=== PATIENT | female | born 1950 | race Two or more races ===

== ENCOUNTER 2017-01-12 16:33 | Inpatient (IN) | payer OTHER, MEDICAID ==
[~2017-01-12] VITALS: Ht 152.4 cm; Wt 58.5 kg
--- NOTE | 2017-01-12 16:56 | Emergency Room Report ---
History of Present Illness General Chief Complaint: Fever Source: Medical Record, EMS Present Illness HPI Patient presents to the ER with persistent fever Patient has a history of epilepsy Is on tracheostomy Patient appears to have been recently transferred from [facility] after persistent seizures Where the patient underwent multiple testing including lumbar puncture Patient appears to be on Keppra Patient herself is nonverbal does not provide any further input This does limit the history of present illness significantly Reports of vomiting or diarrhea patient appears to have been on Zosyn and vancomycin recently Allergies: Coded Allergies: No Known Allergies (Unverified , 01/12/17) Patient History Limited by: medical condition Past Medical History: see triage record Past Surgical History: unable to obtain Pertinent Family History: unable to obtain Now: No Reviewed Nursing Documentation: PMH: Agreed, PSxH: Agreed Nursing Documentation-PMH Past Medical History: No History, Except For Hx Hypertension: Yes Hx Diabetes: Yes Hx Seizures: Yes Review of Systems All Other Systems: negative except mentioned in HPI Physical Exam Vital Signs Date Time Temp Pulse Resp B/P Pulse Ox O2 Delivery O2 Flow Rate FiO2 01/12/17 16:27 102.6 109 16 6/ 91 Trach Collar Sp02 EP Interpretation: reviewed, normal General Appearance: mild distress Head: normocephalic, atraumatic Eyes: bilateral eye EOMI, bilateral eye PERRL ENT: hearing grossly normal, TMs + canals normal, uvula midline, other - Tracheostomy in place no crepitus Neck: supple, no meningismus, no bony tend Respiratory: no rhonchi, no respiratory distress, no retraction, no accessory muscle use, crackles - diffusely Cardiovascular #1: normal peripheral pulses, regular rate, rhythm, no edema, no gallop, no JVD, no murmur Gastrointestinal: non tender, soft, non-distended, no guarding, no hernia, no pulsatile mass, no rebound, other - Feeding tube in place Genitourinary: no CVA tenderness Musculoskeletal: other - Patient is chronicly debilitated, has lower leg ulcers patient's left upper arm appears to be significantly swollen compared to the right side Neurologic: responsive - Minimally to physical stimuli, sensory intact Psychiatric: mood/affect normal Skin: other - As above with skin ulcers on the left upper arm swelling Lymphatic: no adenopathy Medical Decision Making Diagnostic Impression: Primary Impression: Fever Additional Impressions: Sepsis Arm swelling UTI (urinary tract infection) ER Course Patient's complex requiring blood work and imaging study Patient has had long-standing fever With IV antibiotics Patient's urine sample does show bacteria and white blood cells Patient will have further broad-spectrum culturing IV fluids have been given Patient has cardiomegaly with mild congestion, a full a 30 mL per kilo fluid bolus is being held In order not to overwhelm the patient with fluid And patient up for further inpatient care Labs Test 01/12/17 16:50 01/12/17 17:00 01/12/17 18:00 White Blood Count 7.9 K/UL (4.8-10.8) Red Blood Count 3.45 M/UL (4.20-5.40) Hemoglobin 10.2 G/DL (12.0-16.0) Hematocrit 32.5 % (37.0-47.0) Mean Corpuscular Volume 94 FL (80-99) Mean Corpuscular Hemoglobin 29.7 PG (27.0-31.0) Mean Corpuscular Hemoglobin Concent 31.6 G/DL (32.0-36.0) Red Cell Distribution Width 20.6 % (11.6-14.8) Platelet Count 107 K/UL (150-450) Mean Platelet Volume 8.1 FL (6.5-10.1) Neutrophils (%) (Auto) 76.7 % (45.0-75.0) Lymphocytes (%) (Auto) 13.8 % (20.0-45.0) Monocytes (%) (Auto) 8.3 % (1.0-10.0) Eosinophils (%) (Auto) 0.1 % (0.0-3.0) Basophils (%) (Auto) 1.1 % (0.0-2.0) Prothrombin Time 13.4 SEC (9.30-11.50) Prothromb Time International Ratio 1.3 (0.9-1.1) Activated Partial Thromboplast Time 30 SEC (23-33) Sodium Level 146 mEQ/L (135-145) Potassium Level 3.4 mEQ/L (3.4-4.9) Chloride Level 108 mEQ/L (98-107) Carbon Dioxide Level 20 mEQ/L (20-30) Anion Gap 18 (5-15) Blood Urea Nitrogen 22 mg/dL (7-23) Creatinine 0.7 mg/dL (0.5-0.9) Estimat Glomerular Filtration Rate > 60 mL/min (>60) Glucose Level 436 mg/dL (74-106) Lactic Acid Level 2.30 mmol/L (0.66-2.22) 2.20 mmol/L (0.66-2.22) Calcium Level 9.0 mg/dL (8.6-10.2) Phosphorus Level 2.5 mg/dL (2.5-4.8) Magnesium Level 1.8 mg/dL (1.7-2.5) Total Bilirubin 2.1 mg/dL (0.0-1.2) Direct Bilirubin 0.9 mg/dL (0.1-0.3) Aspartate Amino Transf (AST/SGOT) 46 U/L (5-40) Alanine Aminotransferase (ALT/SGPT) 38 U/L (3-33) Alkaline Phosphatase 277 U/L (35-104) Ammonia 51 umol/L (11-51) Total Creatine Kinase 72 U/L (26-140) Creatine Kinase MB 2.1 ng/mL (< 3.8) Creatine Kinase MB Relative Index 2.9 Troponin I < 0.30 ng/mL (<=0.30) Pro-B-Type Natriuretic Peptide 3643 pg/mL (0-125) Total Protein 6.4 g/dL (6.6-8.7) Albumin 2.8 g/dL (3.5-5.2) Globulin 3.6 g/dL Albumin/Globulin Ratio 0.7 (1.0-2.7) Lipase 66 U/L (< 60) Urine Color Yellow Urine Appearance Slightly cloudy Urine pH 5 (4.5-8.0) Urine Specific [place] 1.015 (1.005-1.035) Urine Protein Negative (NEGATIVE) Urine Glucose (UA) 3+ (NEGATIVE) Urine Ketones Negative (NEGATIVE) Urine Occult Blood 1+ (NEGATIVE) Urine Nitrite Negative (NEGATIVE) Urine Bilirubin Negative (NEGATIVE) Urine Urobilinogen Normal MG/DL (0.0-1.0) Urine Leukocyte Esterase 2+ (NEGATIVE) Urine RBC 5-10 /HPF (0 - 2) Urine WBC 10-15 /HPF (0 - 2) Urine Squamous Epithelial Cells Few /LPF (NONE/OCC) Urine Amorphous Sediment Few /LPF (NONE) Urine Bacteria Moderate /HPF (NONE) Urine Yeast Moderate /HPF (NONE) EKG Diagnostic Results Rate: tachycardiac Rhythm: NSR ST Segments: other - Nonspecific ST and T-wave changes Rhythm Strip Diag. Results EP Interpretation: yes Rate: 96 Rhythm: NSR, no PVC's, no ectopy Chest X-Ray Diagnostic Results EP Interpretation: Yes Findings: no consolidation, no effusion, no pneumothorax, other - Cardiomegaly , mild congestion Number of Views: 1 Other X-Ray Diagnostic Results Other X-Ray Diagnostic Results : EP Interpretation: Yes Findings: no fractures, no dislocation, no soft tissue swelling Number of Views: 2 - left upper arm CT/MRI/US Diagnostic Results CT/MRI/US Diagnostic Results : Impression CT abdomen pelvis: Bilateral pleural effusions, cirrhosis with ascites , TIPS in place Last Vital Signs Date Time Temp Pulse Resp B/P Pulse Ox O2 Delivery O2 Flow Rate FiO2 01/12/17 16:27 102.6 109 16 6/ 91 Trach Collar Status: improved Disposition: ADMITTED INPATIENT Condition: Serious JENNY ALEXIS D.O. Jan 12, 2017 16:56
[2017-01-12 17:10] VITALS: BP 151/51
[2017-01-12] MEDS ORDERED: Acetaminophen 650 MG SUPP RECTAL ONE ×2 (17:15→17:30)
[2017-01-12 17:37] LABS: INR 1.3 (0.9-1.1); PROTHROMBIN TIME 13.4 SEC (9.30-11.50)
[2017-01-12 17:44] LABS: TROPONIN I < 0.30 ng/mL (<=0.30)
[2017-01-12 17:46] LABS: BASOPHILS % (AUTO) 1.1 % (0.0-2.0); EOSINOPHILS % (AUTO) 0.1 % (0.0-3.0); LYMPHOCYTES % (AUTO) 13.8 % (20.0-45.0); MEAN CORPUSCULAR HEMOGLOBIN 29.7 PG (27.0-31.0); MEAN CORPUSCULAR HGB CONC 31.6 G/DL (32.0-36.0); MEAN CORPUSCULAR VOLUME 94 FL (80-99); MEAN PLATELET VOLUME 8.1 FL (6.5-10.1); MONOCYTES % (AUTO) 8.3 % (1.0-10.0); NEUTROPHILS % (AUTO) 76.7 % (45.0-75.0); PLATELET COUNT 107 K/UL (150-450); RED BLOOD COUNT 3.45 M/UL (4.20-5.40); RED CELL DISTRIBUTION WIDTH 20.6 % (11.6-14.8); WHITE BLOOD COUNT 7.9 K/UL (4.8-10.8)
[2017-01-12 17:48] LABS: ALANINE AMINOTRANSFERASE 38 U/L (3-33); ALBUMIN/GLOBULIN RATIO 0.7 (1.0-2.7); ANION GAP 18 (5-15); ASPARTATE AMINO TRANSFERASE 46 U/L (5-40); CARBON DIOXIDE 20 mEQ/L (20-30); CHLORIDE 108 mEQ/L (98-107); CREATININE 0.7 mg/dL (0.5-0.9); GLOMERULAR FILTRATION RATE > 60 mL/min (>60); HEMOLYSIS 3; LIPASE 66 U/L (< 60); MAGNESIUM 1.8 mg/dL (1.7-2.5); PHOSPHORUS 2.5 mg/dL (2.5-4.8); POTASSIUM 3.4 mEQ/L (3.4-4.9); SODIUM 146 mEQ/L (135-145); TOTAL PROTEIN 6.4 g/dL (6.6-8.7)
[2017-01-12 17:50] LABS: REFLEX LACTIC ACID YES OR NO YES
[2017-01-12 17:59] LABS: CKMB 2.1 ng/mL (< 3.8)
[2017-01-12 18:04] LABS: APPEARANCE,URINE SLIGHTLY CLOUDY
[2017-01-12 18:05] LABS: KETONES,URINE NEGATIVE (NEGATIVE); NITRITE,URINE NEGATIVE (NEGATIVE); PH,URINE 5 (4.5-8.0); PROTEIN,URINE NEGATIVE (NEGATIVE)
[2017-01-12 18:06] LABS: LEUKOCYTE ESTERASE ,URINE 2+ (NEGATIVE); UROBILINOGEN,URINE NORMAL MG/DL (0.0-1.0)
[2017-01-12 18:07] LABS: AMORPHOUS SEDIMENT,UR FEW /LPF; BACTERIA,URINE MODERATE /HPF; SQUAMOUS EPITHELIAL CELL,UR FEW /LPF (NONE/OCC); YEAST,URINE MODERATE /HPF
[2017-01-12 18:09] LABS: BILIRUBIN,DIRECT 0.9 mg/dL (0.1-0.3)
[2017-01-12 18:47] VITALS: BP 123/42
[2017-01-12] MEDS ORDERED: KEPPRA1000 MG GT (19:28)
[2017-01-12] MEDS ORDERED: DIPHENOXYLATE-A60 ML GT (19:28)
[2017-01-12] MEDS ORDERED: JANUVIA100 MG GT (19:28)
[2017-01-12] MEDS ORDERED: CALCIUM POLYCA625 MG GT (19:28)
[2017-01-12] MEDS ORDERED: LANTUS SOL100 UNIT/1 SUBQ (19:28)
[2017-01-12] MEDS ORDERED: MULTI-DELYN237 ML GT (19:28)
[2017-01-12] MEDS ORDERED: TYLENOL650 MG/20. GT (19:28)
[2017-01-12] MEDS ORDERED: ARGINAID POWDE1 EACH GT (19:28)
[2017-01-12] MEDS ORDERED: NEXIUM40 MG ORAL (19:28)
[2017-01-12] MEDS ORDERED: VIMPAT200 MG GT (19:28)
[2017-01-12] MEDS ORDERED: HUMALOG100 UNIT/1 SUBQ (19:28)
[2017-01-12 20:29] VITALS: BP 123/42
[2017-01-12 21:27] VITALS: BP 158/72
[2017-01-12] MEDS ORDERED: Acetaminophen 650mg/20.3ml GT PRN (22:30)
[2017-01-12] MEDS: DuoNeb 0.5-3(2.5)mg/3ml neb HHN SCH (23:00)
[2017-01-13] VITALS (7 sets, daily range): BP systolic 117–145; BP diastolic 43–74
[2017-01-13] MEDS ORDERED: Vancomycin 750mg Inj IVPB ONE (00:02)
[2017-01-13] MEDS ORDERED: Zosyn 3.375gm inj ONE (00:03)
[2017-01-13] MEDS: Levemir Flexpen SUBQ SCH ×2 (00:13→21:05)
[2017-01-13] MEDS: NovoLOG Insulin Flexpen SUBQ SCH ×4 (00:15→18:34)
[2017-01-13] MEDS: Vancomycin 750mg/D5W 275ml IVPB SCH ×4 (00:17→23:48)
[2017-01-13] MEDS: Piperacillin/Tazobactam 3.375 GM in D5W 110 ML IVPB SCH ×3 (01:30→17:01)
[2017-01-13] MEDS: DuoNeb 0.5-3(2.5)mg/3ml neb HHN SCH ×6 (03:12→23:25)
[2017-01-13] MEDS ORDERED: NovoLOG Insulin Flexpen SUBQ SCH (06:30)
[2017-01-13 07:31] LABS: MEAN CORPUSCULAR HEMOGLOBIN 30.2 PG (27.0-31.0); MEAN CORPUSCULAR HGB CONC 31.6 G/DL (32.0-36.0); MEAN CORPUSCULAR VOLUME 96 FL (80-99); MEAN PLATELET VOLUME 7.1 FL (6.5-10.1); PLATELET COUNT 96 K/UL (150-450); RED BLOOD COUNT 3.25 M/UL (4.20-5.40); RED CELL DISTRIBUTION WIDTH 21.1 % (11.6-14.8); WHITE BLOOD COUNT 7.4 K/UL (4.8-10.8)
[2017-01-13] MEDS ORDERED: Lomotil 2.5mg tab GT PRN (07:45)
[2017-01-13 07:46] LABS: ALANINE AMINOTRANSFERASE 35 U/L (3-33); ALBUMIN/GLOBULIN RATIO 0.8 (1.0-2.7); ANION GAP 17 (5-15); ASPARTATE AMINO TRANSFERASE 38 U/L (5-40); CALCIUM 8.9 mg/dL (8.6-10.2); CARBON DIOXIDE 21 mEQ/L (20-30); CHLORIDE 112 mEQ/L (98-107); CREATININE 0.7 mg/dL (0.5-0.9); GLOMERULAR FILTRATION RATE > 60 mL/min (>60); HEMOLYSIS 5; POTASSIUM 3.1 mEQ/L (3.4-4.9); SODIUM 150 mEQ/L (135-145); TOTAL PROTEIN 5.8 g/dL (6.6-8.7)
[2017-01-13 07:59] LABS: BILIRUBIN,DIRECT 0.8 mg/dL (0.1-0.3)
[2017-01-13] MEDS: Lacosamide 100 MG TABLET ORAL SCH ×2 (09:08→21:02)
[2017-01-13] MEDS: Multivitamin 5ml Liquid GT SCH (09:08)
[2017-01-13] MEDS: Pantoprazole 40mg pkt GT SCH (09:15)
--- NOTE | 2017-01-13 09:47 | Diagnostic Imaging Report ---
Indication: Abdominal pain Technique: Continuous helical transaxial imaging of the abdomen and pelvis was obtained from the lung bases to the pubic symphysis during intravenous contrast administration. Coronal 2-D reformats were also obtained. Study obtained in a Siemens sensation [address] Total Dose length Product (DLP): [address] Dose Index Volume (CTDIvol): 16 mGy Comparison: None Findings: There are small bilateral pleural effusions present. There is nodularity of the liver and splenomegaly consistent with cirrhosis and portal hypertension. There is a TIPS present which appears to be grossly patent. Gallstone is present. Gastrostomy noted. There is posterior basilar atelectasis and cardiomegaly present. Mildly distended loops of small bowel that are fluid-filled noted, nonspecific. Consider enteritis. Some fecal retention demonstrated within the colon and rectum. 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 Impression: Chronic liver disease and stigmata of portal hypertension including portosystemic varices, splenomegaly, ascites and a patent TIPS shunt. Gallstones Gastrostomy Status post hysterectomy Bilateral pleural effusions Dr. Linton has communicated the preliminary results to the Emergency Department. There are no significant discrepancies. The CT scanner at [facility] is accredited by the [employer] and the scans are performed using protocols designed to limit radiation exposure to as low as reasonably achievable to attain images of sufficient resolution adequate for diagnostic evaluation.
--- NOTE | 2017-01-13 10:25 | Diagnostic Imaging Report ---
Indication: Chest Pain Comparison: 01/12/17 A single view chest radiograph was obtained. Findings: Interstitial edema is suspected it appears unchanged from the prior day. Cardiomegaly is present. Small fusion on the left not excluded. Tracheostomy again noted. Impression: CHF
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
--- NOTE | 2017-01-13 11:04 | Infectious Diseases Prog Note ---
Assessment/Plan Assessment/Plan Full consult dictated: A) 1) sepsis, fevers, sirs, ? uti, ? pna, ? cholecystitis, elevated ap/tb, ? viral, influenza negative 2) trach, htn, dm, sz 3) wound care per protocol P) 1) zosyn, vancomycin 2) check sc, labs and f/u chest x-ray 3) thank you Subjective Allergies: Coded Allergies: No Known Allergies (Unverified , 01/12/17) Objective Vital Signs Last 24 Hour Vital Signs Date Time Temp Pulse Resp B/P Pulse Ox O2 Delivery O2 Flow Rate FiO2 01/13/17 08:32 93 18 100 T-piece 5.0 30 01/13/17 08:32 100 T-piece 5.0 30 01/13/17 08:32 T-piece 5.0 30 01/13/17 08:26 96 18 100 T-piece 5.0 30 01/13/17 08:26 30 01/13/17 08:00 98.2 96 17 135/62 100 T-piece 30 01/13/17 04:00 98.2 79 20 144/74 92 Trach Collar 01/13/17 04:00 106 01/13/17 03:26 72 18 100 T-piece 6.0 30 01/13/17 03:11 89 18 100 T-piece 6.0 30 01/13/17 01:13 T-piece 01/13/17 01:10 97 T-piece 6.0 30 01/13/17 00:00 98.3 96 24 143/68 100 Trach Collar 01/13/17 00:00 97 01/12/17 23:41 85 18 99 T-piece 6.0 30 01/12/17 23:40 81 01/12/17 23:30 82 18 97 T-piece 6.0 30 01/12/17 22:31 98 T-piece 6.0 30 01/12/17 22:30 T-piece 6.0 30 01/12/17 21:27 97.7 90 19 158/72 100 Room Air 01/12/17 21:00 99.2 80 20 123/42 100 Endotracheal Tube 5.0 01/12/17 20:29 99.2 80 20 123/42 100 Endotracheal Tube 5.0 01/12/17 18:47 86 16 123/42 100 T-piece 5.0 01/12/17 18:32 99.2 01/12/17 18:29 99.2 01/12/17 17:10 103.6 100 16 151/51 100 T-piece 5.0 01/12/17 16:27 102.6 109 16 6/ 91 Trach Collar Height (Feet): 5 Weight (Pounds): 129 Microbiology Date/Time Source Procedure Growth Status 01/12/17 16:50 Nasal Nares Influenza Types A,B Antigen (KENYATTA) - Final Complete 01/12/17 17:00 Urine,Clean Catch Urine Culture - Preliminary NO GROWTH Resulted Laboratory Tests Test 01/12/17 16:50 01/12/17 17:00 01/12/17 18:00 01/13/17 06:40 White Blood Count 7.9 K/UL (4.8-10.8) 7.4 K/UL (4.8-10.8) Red Blood Count 3.45 M/UL (4.20-5.40) L 3.25 M/UL (4.20-5.40) L Hemoglobin 10.2 G/DL (12.0-16.0) L 9.8 G/DL (12.0-16.0) L Hematocrit 32.5 % (37.0-47.0) L 31.1 % (37.0-47.0) L Mean Corpuscular Volume 94 FL (80-99) 96 FL (80-99) Mean Corpuscular Hemoglobin 29.7 PG (27.0-31.0) 30.2 PG (27.0-31.0) Mean Corpuscular Hemoglobin Concent 31.6 G/DL (32.0-36.0) L 31.6 G/DL (32.0-36.0) L Red Cell Distribution Width 20.6 % (11.6-14.8) H 21.1 % (11.6-14.8) H Platelet Count 107 K/UL (150-450) L 96 K/UL (150-450) L Mean Platelet Volume 8.1 FL (6.5-10.1) 7.1 FL (6.5-10.1) Neutrophils (%) (Auto) 76.7 % (45.0-75.0) H % (45.0-75.0) Lymphocytes (%) (Auto) 13.8 % (20.0-45.0) L % (20.0-45.0) Monocytes (%) (Auto) 8.3 % (1.0-10.0) % (1.0-10.0) Eosinophils (%) (Auto) 0.1 % (0.0-3.0) % (0.0-3.0) Basophils (%) (Auto) 1.1 % (0.0-2.0) % (0.0-2.0) Prothrombin Time 13.4 SEC (9.30-11.50) H Prothromb Time International Ratio 1.3 (0.9-1.1) H Activated Partial Thromboplast Time 30 SEC (23-33) Sodium Level 146 mEQ/L (135-145) H 150 mEQ/L (135-145) H Potassium Level 3.4 mEQ/L (3.4-4.9) 3.1 mEQ/L (3.4-4.9) L Chloride Level 108 mEQ/L (98-107) H 112 mEQ/L (98-107) H Carbon Dioxide Level 20 mEQ/L (20-30) 21 mEQ/L (20-30) Anion Gap 18 (5-15) H 17 (5-15) H Blood Urea Nitrogen 22 mg/dL (7-23) 24 mg/dL (7-23) H Creatinine 0.7 mg/dL (0.5-0.9) 0.7 mg/dL (0.5-0.9) Estimat Glomerular Filtration Rate > 60 mL/min (>60) > 60 mL/min (>60) Glucose Level 436 mg/dL (74-106) H 431 mg/dL (74-106) H Lactic Acid Level 2.30 mmol/L (0.66-2.22) H 2.20 mmol/L (0.66-2.22) Calcium Level 9.0 mg/dL (8.6-10.2) 8.9 mg/dL (8.6-10.2) Phosphorus Level 2.5 mg/dL (2.5-4.8) Magnesium Level 1.8 mg/dL (1.7-2.5) Total Bilirubin 2.1 mg/dL (0.0-1.2) H 1.7 mg/dL (0.0-1.2) H Direct Bilirubin 0.9 mg/dL (0.1-0.3) H 0.8 mg/dL (0.1-0.3) H Aspartate Amino Transf (AST/SGOT) 46 U/L (5-40) H 38 U/L (5-40) Alanine Aminotransferase (ALT/SGPT) 38 U/L (3-33) H 35 U/L (3-33) H Alkaline Phosphatase 277 U/L (35-104) H 223 U/L (35-104) H Ammonia 51 umol/L (11-51) Total Creatine Kinase 72 U/L (26-140) Creatine Kinase MB 2.1 ng/mL (< 3.8) Creatine Kinase MB Relative Index 2.9 Troponin I < 0.30 ng/mL (<=0.30) Pro-B-Type Natriuretic Peptide 3643 pg/mL (0-125) H Total Protein 6.4 g/dL (6.6-8.7) L 5.8 g/dL (6.6-8.7) L Albumin 2.8 g/dL (3.5-5.2) L 2.7 g/dL (3.5-5.2) L Globulin 3.6 g/dL 3.1 g/dL Albumin/Globulin Ratio 0.7 (1.0-2.7) L 0.8 (1.0-2.7) L Lipase 66 U/L (< 60) H Urine Color Yellow Urine Appearance Slightly cloudy Urine pH 5 (4.5-8.0) Urine Specific [place] 1.015 (1.005-1.035) Urine Protein Negative (NEGATIVE) Urine Glucose (UA) 3+ (NEGATIVE) H Urine Ketones Negative (NEGATIVE) Urine Occult Blood 1+ (NEGATIVE) H Urine Nitrite Negative (NEGATIVE) Urine Bilirubin Negative (NEGATIVE) Urine Urobilinogen Normal MG/DL (0.0-1.0) Urine Leukocyte Esterase 2+ (NEGATIVE) H Urine RBC 5-10 /HPF (0 - 2) H Urine WBC 10-15 /HPF (0 - 2) H Urine Squamous Epithelial Cells Few /LPF (NONE/OCC) Urine Amorphous Sediment Few /LPF (NONE) H Urine Bacteria Moderate /HPF (NONE) H Urine Yeast Moderate /HPF (NONE) H Neutrophils % (Manual) Pending Lymphocytes % (Manual) Pending Platelet Estimate Pending Platelet Morphology Pending Current Medications Medications (Trade) Dose Ordered Sig/Pete Route PRN Reason Start Time Stop Time Status Last Admin Dose Admin Acetaminophen (Tylenol) 650 mg Q4H PRN GT Prn Headache/Temp > 101 01/12/17 22:30 02/11/17 22:29 Albuterol/ Ipratropium (DuoNeb 0.5-3(2.5)mg/3ml) 3 ml Q4HRT HHN 01/12/17 23:00 01/17/17 22:59 01/13/17 08:26 Dextrose (Dextrose 50%) STAT PRN IV Hypoglycemia 01/12/17 22:45 02/11/17 22:44 Dextrose/ Electrolytes (D5W w/KCl 20mEq) 1,000 ml @ 100 mls/hr Q10H IV 01/13/17 11:00 02/12/17 10:59 Diphenoxylate HCl/ Atropine (Lomotil) 2.5 mg Q6H PRN GT Diarrhea 01/13/17 07:45 02/12/17 07:44 Insulin Aspart Protocol continued 380-42... Q6HR SUBQ 01/13/17 00:06 02/12/17 00:05 01/13/17 05:56 Insulin Detemir (Levemir) 40 units BEDTIME SUBQ 01/12/17 23:00 02/11/17 22:59 01/13/17 00:13 Lacosamide 200 mg 200 mg Q12HR ORAL 01/13/17 09:00 02/12/17 08:59 01/13/17 09:08 Levetiracetam (Keppra) 1,500 mg BID GT 01/13/17 09:00 02/12/17 08:59 01/13/17 09:08 Multivitamins (Multivitamin Hexavitamin) 5 ml DAILY GT 01/13/17 09:00 02/12/17 08:59 01/13/17 09:08 Non-Formulary Medication (Non-Formulary Med) 1 ea DAILY ORAL 01/13/17 09:00 02/12/17 08:59 UNV Non-Formulary Medication (Non-Formulary Med) 1 ea DAILY ORAL 01/13/17 09:00 02/12/17 08:59 UNV Pantoprazole (Protonix) 40 mg DAILY GT 01/13/17 09:00 02/12/17 08:59 01/13/17 09:15 Piperacillin Sod/ Tazobactam Sod/ Dextrose (Zosyn/D5W) 110 ml @ 27.5 mls/hr Q8H IVPB 01/13/17 00:00 01/20/17 00:00 01/13/17 09:08 Sitagliptin Phosphate (Januvia) 100 mg DAILY GT 01/13/17 09:00 02/12/17 08:59 01/13/17 09:08 Vancomycin HCl 1 ea 1 ea DAILY PRN MISC Per rx protocol 01/12/17 22:15 02/11/17 22:14 Vancomycin HCl/ Dextrose (Vancomycin/D5W) 275 ml @ 183.708 mls/hr Q24H IVPB 01/12/17 23:00 01/17/17 22:59 01/13/17 00:17 LATOSHA ARANDA Jan 13, 2017 11:04
--- NOTE | 2017-01-13 11:21 | Diagnostic Imaging Report ---
Indication: Pain Findings: 2 views of the left humerus were obtained. No acute fractures, malalignment, erosions or periostitis are identified. Bone mineralization is diffusely decreased. Soft tissues are unremarkable. Impression: Negative examination of the humerus
--- NOTE | 2017-01-13 11:21 | Diagnostic Imaging Report ---
Indication: Chest Pain Comparison: None A single view chest radiograph was obtained. Findings: Tracheostomy noted. Cardiomegaly, pulmonary vascular redistribution and mild interstitial edema are present. The bones are osteopenic. Impression: Mild CHF
[2017-01-13] MEDS: D5W w/KCl 20mEq 1,000 ML IV SCH ×2 (11:40→21:02)
[2017-01-13 11:52] LABS: BAND NEUTROPHILS % (MANUAL) 0 % (0-8); BASOPHILS % (MANUAL) 0 % (0-2); EOSINOPHILS % (MANUAL) 0 % (0-3); LYMPHOCYTES % (MANUAL) 16 % (20-45); NEUTROPHILS % (MANUAL) 76 % (45-75); PLATELET ESTIMATE DECREASED; PLATELET MORPHOLOGY NORMAL; TOTAL CELLS COUNTED 100
[2017-01-13 11:53] LABS: ANISOCYTOSIS 2+; HYPOCHROMASIA 1+
--- NOTE | 2017-01-13 12:54 | History & Physical ---
History and Physical History & Physicial dict sepsis resp failure cirrhosis, consider SBP r/o SBE encephalopathy DM UTI LUE edema dehydration, high Na, low K VIOLET BLOOD Jan 13, 2017 12:54
--- NOTE | 2017-01-13 20:18 | History and Physical Report ---
DATE OF ADMISSION: 01/12/2017 CHIEF COMPLAINT: Fever. HISTORY OF PRESENT ILLNESS: The patient is an unfortunate 66-year-old woman, who was sent to the emergency department yesterday by paramedics because of persistent fever. I saw her yesterday prior to admission at the nursing facility. She had been admitted several days earlier with respiratory failure and had fever. On arrival, she was cultured and placed on Zosyn and vancomycin. She did not respond and continued having fever and was transferred to the hospital. 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 PAST MEDICAL HISTORY: The patient was chronically ill with cirrhosis and diabetes and hepatic encephalopathy. She developed status epilepticus and was hospitalized initially at [facility] and then transferred to [facility]. She was treated with seizure medication and required placement of a tracheostomy. She is not ventilator-dependent. She has a gastric feeding tube. ALLERGIES: None. MEDICATIONS: Reviewed and reconciled. PHYSICAL EXAMINATION: VITAL SIGNS: Show temperature was 102.6 and pulse 109, on arrival. GENERAL: The patient is unresponsive, lying in bed. HEENT: The head is normocephalic. There is no signs of trauma. NECK: She has a tracheostomy on cool aerosol. CHEST: She has a few rhonchi. CARDIAC: Rhythm is regular. ABDOMEN: Soft. Gastric tube is in place. Liver and spleen not enlarged. There is no ascites evidence. EXTREMITIES: Have no clubbing or cyanosis. There is edema of the left arm. LABORATORY STUDIES: Show normal white count, hemoglobin is 9.8, and platelets are reduced to 96,000. Chemistry shows sodium is elevated at 150 and potassium 3.1. Renal function is normal. Blood sugar is 431. Lactic acid was elevated at 2.30 repeat was 2.20. Bilirubin was elevated at 1.7 and liver enzymes are elevated. Albumin is 2.7. Urinalysis shows 10 to 15 white cells. INR is 1.3. IMPRESSIONS: 1. Sepsis with fever and lactic acidosis, etiology unclear. 2. Respiratory failure on cool aerosol with tracheostomy. 3. Anoxic encephalopathy status post status epilepticus. 4. Seizure disorder. 5. Dysphagia with gastric tube. 6. Cirrhosis. 7. Diabetes. 8. Hypernatremia with dehydration. 9. Urinary tract infection, mild. PLAN: The patient will have an abdominal ultrasound if there is significant ascites and spontaneous peritonitis would be consideration and paracentesis would be indicated. Blood cultures and echocardiogram will be done to look for possible endocarditis. The patient was seen by Infectious Disease, who I have contacted this morning. She will be transferred to her contracted hospital if requested. Her prognosis is poor. Tripp Lopez M.D. DR: DIPIKA JOB#: [id number] CC: Tripp Lopez M.D.; Fax#: [phone] Lopez M.D. ; Fax#: [phone]
[2017-01-14 00:18] VITALS: BP 130/81
[2017-01-14] MEDS: Piperacillin/Tazobactam 3.375 GM in D5W 110 ML IVPB SCH ×3 (00:53→17:17)
[2017-01-14] MEDS: NovoLOG Insulin Flexpen SUBQ SCH ×4 (00:54→18:04)
[2017-01-14] MEDS: DuoNeb 0.5-3(2.5)mg/3ml neb HHN SCH ×6 (03:21→22:33)
[2017-01-14 04:00] VITALS: BP 96/40
--- NOTE | 2017-01-14 04:48 | Consultation ---
DATE OF CONSULTATION: 01/13/2017 CONSULTING PHYSICIAN: Emile Lopez M.D. ATTENDING PHYSICIAN: Tripp Lopez M.D. REASON FOR CONSULTATION: Sepsis and fevers, possible UTI, and possible pneumonia. CHIEF COMPLAINT: Coming into the hospital for sepsis. HISTORY OF PRESENT ILLNESS: This is a 66-year-old female, who has a history of tracheostomy. Currently, she is not on ventilator. She is poorly responsive. The patient presents to [facility] with fevers and sepsis. Infectious Disease consultation was requested for antibiotic management. Workup showed that she could have urinary tract infection. Chest x-ray showed CHF. She is a risk for pneumonia, aspiration and healthcare-acquired pneumonia. The patient was placed on Zosyn and vancomycin. Pending cultures. MAR was noted. Orders noted. Notes were reviewed. Case was discussed with the RN. PAST MEDICAL HISTORY: Obtained from the records. She has a past medical history as following. She has a history of cirrhosis, history of spontaneous bowel peritonitis, history of encephalopathy, history of diabetes, comes in with dehydration, anemia, history of respiratory failure on trach, history of encephalopathy, and history of seizures. She has a history of ventilator-dependent respiratory failure. She also has a history of hypertension in addition to the other medical problems. Please see past medical history in medical record. MEDICATIONS: Upon reviewing the MAR, the patient is on the following medications. She is on IV fluids, Keppra, multivitamins, Januvia, Vimpat, Protonix, Lomotil, NovoLog insulin, Zosyn, vancomycin per pharmacy dosing, Levemir, IV fluids, and acetaminophen. Please see medications in medical record. ALLERGIES: No known drug allergies. SOCIAL HISTORY: Negative for smoking, alcohol, or drug abuse. FAMILY HISTORY: Noncontributory. REVIEW OF SYSTEMS: Constitutional: She has generalized weakness, fatigue, and poorly responsive. She came in with fevers. She has a Sky. Head And Neck: She has a trach. Cardiac: No pressure. Gastrointestinal: No nausea, vomiting, or diarrhea. Genitourinary: She has a Sky. Pulmonary: She has congestion and shortness of breath. She had a trach. Skin: No rash. Wounds were noted. Neurologic: No seizures. PHYSICAL EXAMINATION: GENERAL: The patient is poorly responsive and lethargic. VITAL SIGNS: She came in with temperature of 103.6 degrees. Her pulse rate is 108, temperature now is 100.0 degrees, respiratory rate 20, blood pressure 132/43, and saturation 100%. She is on a TPs trach. Respiratory rate was high as 20. HEAD AND NECK: Normocephalic. No facial droop. Trach intact. CARDIAC: Regular. No gallop or murmur. ABDOMEN: Soft. Positive bowel sounds. Mild distention. LUNGS: Few bilateral rhonchi, rales, and crackles. SKIN: No rash or dermatitis. MUSCULOSKELETAL: No effusion or contractures. Legs are without cellulitis. PERIPHERAL VASCULAR: No cyanosis or gangrene. RECTAL: Deferred. PELVIC: Deferred. BREASTS: Deferred. LINES: Line sites are without phlebitis. NEUROLOGIC: Generalized weakness and poorly responsive. Wound was reviewed and to my exam and review they do not look acutely infected. LABORATORY AND DIAGNOSTIC DATA: UA has 2+ leukocyte esterase and 10 to 15 white blood cells. Creatinine is 0.7. White count is 7.4 and hemoglobin is 9.8. Urine culture is negative so far. Influenza screen is negative. Final urine culture is pending. Serum culture was ordered. Chest x-ray shows CHF versus infiltrate is noted. I reviewed CT scan of the abdomen and pelvis showed liver disease with portal hypertension, varices, and effusions. There is no mention of ascites at this time. Final cultures are pending. White count is 7.4, hemoglobin 9.8, and platelet count 96,000. Creatinine is 0.7. LFTs were noted. Ultrasound of the abdomen has been ordered and this has been done and results are pending. ASSESSMENT AND PLAN: 1. The patient has sepsis, fevers, SIRS criteria, questionable urinary tract infection, questionable pneumonia, questionable cholecystitis, questionable spontaneous bowel peritonitis, influenza is negative, and questionable viral syndrome. At this time, the patient is on Zosyn and vancomycin. Check ultrasound. Check followup labs. Check chest x-ray. Check sputum culture, urine culture and final. Continue Zosyn and vancomycin. Pending workup for patient with sepsis and fevers. 2. The patient has history of hypertension. 3. Diabetes. 4. Follow blood sugar and blood pressure control per primary. 5. Seizures. 6. Tracheostomy. 7. History of ventilator respiratory failure. 8. Cirrhosis. 9. History of encephalopathy. 10. Wound care protocol done, I do not think this is the source of sepsis. 11. Feeding tube dysphagia. 12. Anemia. 13. Hypernatremia. 14. Past medical history as noted. 15. No allergies. 16. Notes were reviewed. Thank you for this consultation. I will follow. Emile Lopez M.D. DR: SHREYA JOB#: [id number] CC:
--- NOTE | 2017-01-14 06:13 | Wound Nurse Progress Note ---
Wound RN Progress Note Wound Consult reassessed admitted wounds , no change noted at this time. wound care is effective. blister site remains intact. CORINNE NUNEZ Jan 14, 2017 06:13
[2017-01-14] MEDS: D5W w/KCl 20mEq 1,000 ML IV SCH ×2 (07:00→18:05)
[2017-01-14 07:49] LABS: ALANINE AMINOTRANSFERASE 44 U/L (3-33); ALBUMIN/GLOBULIN RATIO 0.7 (1.0-2.7); ANION GAP 17 (5-15); ASPARTATE AMINO TRANSFERASE 74 U/L (5-40); CALCIUM 8.9 mg/dL (8.6-10.2); CARBON DIOXIDE 21 mEQ/L (20-30); CHLORIDE 102 mEQ/L (98-107); CREATININE 0.7 mg/dL (0.5-0.9); GLOMERULAR FILTRATION RATE > 60 mL/min (>60); HEMOLYSIS 5; MEAN CORPUSCULAR HEMOGLOBIN 30.4 PG (27.0-31.0); MEAN CORPUSCULAR HGB CONC 30.8 G/DL (32.0-36.0); MEAN CORPUSCULAR VOLUME 98 FL (80-99); MEAN PLATELET VOLUME 7.7 FL (6.5-10.1); PLATELET COUNT 83 K/UL (150-450); POTASSIUM 3.6 mEQ/L (3.4-4.9); RED BLOOD COUNT 3.13 M/UL (4.20-5.40); RED CELL DISTRIBUTION WIDTH 20.6 % (11.6-14.8); SODIUM 140 mEQ/L (135-145); TOTAL PROTEIN 6.1 g/dL (6.6-8.7); WHITE BLOOD COUNT 5.7 K/UL (4.8-10.8)
[2017-01-14 08:00] VITALS: BP 135/48
[2017-01-14 08:08] LABS: BILIRUBIN,DIRECT 0.8 mg/dL (0.1-0.3)
[2017-01-14 08:30] LABS: ANISOCYTOSIS 3+; BAND NEUTROPHILS % (MANUAL) 0 % (0-8); BASOPHILS % (MANUAL) 0 % (0-2); EOSINOPHILS % (MANUAL) 5 % (0-3); HYPOCHROMASIA 2+; LYMPHOCYTES % (MANUAL) 18 % (20-45); NEUTROPHILS % (MANUAL) 74 % (45-75); PLATELET ESTIMATE DECREASED; PLATELET MORPHOLOGY NORMAL; TOTAL CELLS COUNTED 100
[2017-01-14] MEDS: Multivitamin 5ml Liquid GT SCH (08:51)
[2017-01-14] MEDS: Pantoprazole 40mg pkt GT SCH (08:51)
[2017-01-14] MEDS: Lacosamide 100 MG TABLET ORAL SCH ×2 (08:52→21:44)
--- NOTE | 2017-01-14 09:59 | Diagnostic Imaging Report ---
Indication: Abnormal liver function tests Technique: Melo-scale and duplex images of the upper abdomen were obtained Comparison: CT scan dated 01/12/2017 Findings: There is a small left pleural effusion. Gallbladder demonstrates gallstones. Gallbladder wall is mildly thickened, measuring 4 mm thick. . Common bile duct measures 6 mm in diameter. No intrahepatic biliary ductal dilatation. Liver demonstrates coarsened echogenicity, and surface micro-nodularity. There is a right portal vein to right hepatic vein TIPS. This is patent. Hepatic flow is demonstrated within the main portal vein. Is apparent velocity elevation within the TIPS, flow velocity measuring between 236 and 3 17 cm/s. The main portal vein flow velocity is approximately 50 cm/s. Trace ascites fluid visualized on CT scan is not evident sonographically. Pancreas is obscured by bowel gas. Spleen is mildly enlarged, measuring 13.5 cm long axis dimension. Some splenic hilar varices are demonstrated.. Left kidney measures 11.5 cm in length. Right kidney measures 12.6 cm length. Both kidneys demonstrate normal echogenicity. There is no hydronephrosis. No focal abnormality. . Non-aneurysmal abdominal aorta. Impression: Evidence of hepatic cirrhosis Right portal to right hepatic vein TIPS shunt. This is patent, but apparent flow velocity elevation raises possibility of shunt stenosis. Mild splenomegaly Splenic hilar varices. 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 Cholelithiasis. Mild gallbladder wall thickening is probably secondary to hepatocellular dysfunction, but acute cholecystitis cannot be ruled out. Consider comparison thyroid scan if there is high clinical suspicion Negative for dilated bile ducts Small left pleural effusion Note inability to visualize pancreas and portions of the abdominal aorta
[2017-01-14 12:00] VITALS: BP 110/83
--- NOTE | 2017-01-14 15:14 | Cardiology Report ---
APPROVED REPORT EKG Measurement Heart [id number] Normal sinus rhythm Nonspecific T wave abnormality Abnormal ECG
--- NOTE | 2017-01-14 15:32 | Cardiology Report ---
APPROVED REPORT EXAM: Two-dimensional and M-mode echocardiogram with Doppler and color Doppler. INDICATION Endocarditis M-Mode DIMENSIONS IVSd1.2 (0.7-1.1cm)Left Atrium (MM)3.8 (1.6-4.0cm) LVDd3.3 (3.5-5.6cm)Aortic Root2.8 (2.0-3.7cm) PWd1.0 (0.7-1.1cm)Aortic Cusp Exc.1.8 (1.5-2.0cm) LVDs2.1 (2.5-4.0cm) PWs1.4 cm Normal left ventricular chamber size, systolic function and wall motion. Left ventricular ejection fraction estimated to be 65 %. Mild left ventricular hypertrophy by 2-D. Anterior Echo-free space, may be due to pericardial fat or effusion. Mild left atrial enlargement. Right cardiac chamber sizes are within normal limits. Mild focal aortic valve sclerosis with adequate cusp excursion. Mildly thickened mitral valve leaflets with normal excursion. Mitral annulus and aortic root calcification. Normal pulmonic valve structure. Normal tricuspid valve structure. IVC at normal size with physiologic collapse. A color flow and spectral Doppler study was performed and revealed: No aortic regurgitation. No aortic stenosis. Moderate mitral regurgitation. No mitral stenosis. Mitral inflow indicates normal left ventricular diastolic function. Moderate tricuspid regurgitation. Tricuspid systolic velocities suggests peak right ventricular systolic pressure of 57 mmHg, consistent with moderate to severe pulmonary hypertension. Mild pulmonic regurgitation present.
[2017-01-14 16:00] VITALS: BP 131/55
--- NOTE | 2017-01-14 16:35 | Pulmonology Progress Note ---
Assessment/Plan Assessment/Plan 1. Sepsis with fever and lactic acidosis, etiology unclear. 2. Respiratory failure on cool aerosol with tracheostomy. 3. Anoxic encephalopathy status post status epilepticus. 4. Seizure disorder. 5. Dysphagia with gastric tube. 6. Cirrhosis. 7. Diabetes. 8. Hypernatremia with dehydration. 9. Urinary tract infection, mild. 10. Pulm HTN Na normal; decrease IVF temp down echo no vegetations abd US gallstones, doubt acute ramior cont rx disc w RN Subjective ROS Limited/Unobtainable: Yes Constitutional: Reports: fever - 100 max Allergies: Coded Allergies: No Known Allergies (Unverified , 01/12/17) Objective Last 24 Hour Vital Signs Date Time Temp Pulse Resp B/P Pulse Ox O2 Delivery O2 Flow Rate FiO2 01/14/17 14:47 98 20 100 T-piece 8.0 30 01/14/17 14:37 99 20 100 T-piece 8.0 30 01/14/17 14:37 30 01/14/17 12:07 T-piece 8.0 30 01/14/17 12:07 99 T-piece 8.0 30 01/14/17 12:00 98.1 108 17 110/83 99 T-piece 30 01/14/17 12:00 105 01/14/17 10:50 98 20 100 T-piece 8.0 30 01/14/17 10:45 30 01/14/17 10:45 99 20 100 T-piece 8.0 30 01/14/17 08:00 98.2 108 18 135/48 100 T-piece 30 01/14/17 08:00 110 01/14/17 06:33 98 T-piece 8.0 30 01/14/17 06:33 T-piece 8.0 30 01/14/17 06:25 100 20 100 T-piece 8.0 30 01/14/17 06:20 30 01/14/17 06:20 98 20 100 T-piece 8.0 30 01/14/17 04:00 103 01/14/17 04:00 97.0 95 21 96/40 99 Trach Collar 01/14/17 03:30 81 16 100 T-piece 8.0 30 01/14/17 03:23 30 01/14/17 03:22 90 16 100 T-piece 8.0 30 01/14/17 01:00 99 T-piece 8.0 30 01/14/17 01:00 T-piece 8.0 30 01/14/17 00:18 97.2 108 21 130/81 99 Trach Collar 01/14/17 00:00 106 01/13/17 23:44 82 16 100 T-piece 8.0 30 01/13/17 23:27 30 01/13/17 23:26 100 16 98 T-piece 8.0 30 01/13/17 22:51 98.2 01/13/17 21:26 78 144/59 100 Room Air 01/13/17 20:00 115 01/13/17 20:00 100.0 108 20 133/43 100 Room Air 01/13/17 19:30 101 18 100 T-piece 8.0 30 01/13/17 19:17 T-piece 8.0 30 01/13/17 19:17 99 T-piece 8.0 30 01/13/17 19:17 30 01/13/17 19:16 105 18 99 T-piece 8.0 30 Intake and Output 01/13/17 01/14/17 19:00 07:00 Intake Total 310.0 ml 240 ml Balance 310.0 ml 240 ml Free Water 75 ml IV Total 310.0 ml 100 ml Tube Feeding 65 ml # Bowel Movements 2 General Appearance: no acute distress HEENT: atraumatic Respiratory/Chest: rhonchi, other - bloody secretions Cardiovascular: normal rate Abdomen: soft, non tender Extremities: other - LUE Microbiology Date/Time Source Procedure Growth Status 01/12/17 16:50 Blood Blood Culture - Preliminary NO GROWTH AFTER 24 HOURS Resulted 01/12/17 16:35 Blood Blood Culture - Preliminary NO GROWTH AFTER 24 HOURS Resulted 01/13/17 12:56 Sputum Gram Stain - Final Resulted 01/13/17 12:56 Sputum Culture - Preliminary Gram Negative Bacillus 1 Resulted 01/12/17 17:00 Nasal Nares MRSA Culture - Final NO METHICILLIN RESISTANT STAPH AUREUS... Complete 01/12/17 16:50 Nasal Nares Influenza Types A,B Antigen (KENYATTA) - Final Complete 01/13/17 01:00 Stool Clostridium difficile Toxin Assay - Final Complete 01/12/17 17:00 Urine,Clean Catch Urine Culture - Preliminary Resulted 01/13/17 01:00 Sacral Wound Gram Stain - Final Resulted 01/13/17 01:00 Sacral Wound Wound Culture Pending Resulted 01/12/17 17:00 Rectum VRE Culture - Final Enterococcus Faecium - Vre Complete Laboratory Tests 01/14/17 07:30: White Blood Count 5.7, Red Blood Count 3.13L, Hemoglobin 9.5L, Hematocrit 30.8L , Mean Corpuscular Volume 98, Mean Corpuscular Hemoglobin 30.4, Mean Corpuscular Hemoglobin Concent 30.8L, Red Cell Distribution Width 20.6H, Platelet Count 83L, Mean Platelet Volume 7.7, Neutrophils (%) (Auto) , Lymphocytes (%) (Auto) , Monocytes (%) (Auto) , Eosinophils (%) (Auto) , Basophils (%) (Auto) , Differential Total Cells Counted 100, Neutrophils % ( Manual) 74, Lymphocytes % (Manual) 18L, Monocytes % (Manual) 3, Eosinophils % ( Manual) 5H, Basophils % (Manual) 0, Band Neutrophils 0, Platelet Estimate DecreasedL, Platelet Morphology Normal, Hypochromasia 2+, Anisocytosis 3+, Sodium Level 140, Potassium Level 3.6, Chloride Level 102, Carbon Dioxide Level 21, Anion Gap 17H, Blood Urea Nitrogen 23, Creatinine 0.7, Estimat Glomerular Filtration Rate > 60, Glucose Level 356H, Calcium Level 8.9, Total Bilirubin 1.7H, Direct Bilirubin 0.8H, Aspartate Amino Transf (AST/SGOT) 74H, Alanine Aminotransferase (ALT/SGPT) 44H, Alkaline Phosphatase 309H, Total Protein 6.1L, Albumin 2.6L, Globulin 3.5, Albumin/Globulin Ratio 0.7L Current Medications Medications (Trade) Dose Ordered Sig/Pete Route PRN Reason Start Time Stop Time Status Last Admin Dose Admin Acetaminophen (Tylenol) 650 mg Q4H PRN GT Prn Headache/Temp > 101 01/12/17 22:30 02/11/17 22:29 01/13/17 21:03 Albuterol/ Ipratropium (DuoNeb 0.5-3(2.5)mg/3ml) 3 ml Q4HRT HHN 01/12/17 23:00 01/17/17 22:59 01/14/17 14:37 Dextrose (Dextrose 50%) STAT PRN IV Hypoglycemia 01/12/17 22:45 02/11/17 22:44 Dextrose/ Electrolytes (D5W w/KCl 20mEq) 1,000 ml @ 100 mls/hr Q10H IV 01/13/17 11:00 02/12/17 10:59 01/13/17 21:02 Diphenoxylate HCl/ Atropine (Lomotil) 2.5 mg Q6H PRN GT Diarrhea 01/13/17 07:45 02/12/17 07:44 Insulin Aspart Protocol continued 380-42... Q6HR SUBQ 01/13/17 00:06 02/12/17 00:05 01/14/17 12:01 Insulin Detemir (Levemir) 40 units BEDTIME SUBQ 01/12/17 23:00 02/11/17 22:59 01/13/17 21:05 Lacosamide 200 mg 200 mg Q12HR ORAL 01/13/17 09:00 02/12/17 08:59 01/14/17 08:52 Levetiracetam (Keppra) 1,500 mg BID GT 01/13/17 09:00 02/12/17 08:59 01/14/17 08:52 Multivitamins (Multivitamin Hexavitamin) 5 ml DAILY GT 01/13/17 09:00 02/12/17 08:59 01/14/17 08:51 Pantoprazole (Protonix) 40 mg DAILY GT 01/13/17 09:00 02/12/17 08:59 01/14/17 08:51 Piperacillin Sod/ Tazobactam Sod/ Dextrose (Zosyn/D5W) 110 ml @ 27.5 mls/hr Q8H IVPB 01/13/17 00:00 01/20/17 00:00 01/14/17 07:50 Sitagliptin Phosphate (Januvia) 100 mg DAILY GT 01/13/17 09:00 02/12/17 08:59 01/14/17 08:51 Vancomycin HCl 1 ea 1 ea DAILY PRN MISC Per rx protocol 01/12/17 22:15 02/11/17 22:14 Vancomycin HCl/ Dextrose (Vancomycin/D5W) 275 ml @ 183.708 mls/hr Q24H IVPB 01/12/17 23:00 01/17/17 22:59 01/13/17 23:48 VIOLET BLOOD Jan 14, 2017 16:35
--- NOTE | 2017-01-14 17:43 | Infectious Diseases Prog Note ---
Assessment/Plan Assessment/Plan ASSESSMENT AND PLAN: 1. sepsis, sirs, fevers, ? gram neg pna, ? uti, gs, multiple wounds - fevers improved, more alert - check final cultures and f/u labs and chest x-ray - continue vancomycin and zosyn - d/w Dr. Lopez 2. The patient has history of hypertension. 3. Diabetes. 4. Follow blood sugar and blood pressure control per primary. 5. Seizures. 6. Tracheostomy. 7. History of ventilator respiratory failure. 8. Cirrhosis. 9. History of encephalopathy. 10. Wound care protocol done, I do not think this is the source of sepsis. 11. Feeding tube dysphagia. 12. Anemia. 13. Hypernatremia. 14. Past medical history as noted. 15. No allergies. 16. Notes were reviewed. 17. vre colonization and isolation Subjective Constitutional: Reports: other - + t, Denies: fever HEENT: Reports: congestion Respiratory: Reports: shortness of breath Cardiovascular: Denies: chest pain Gastrointestinal/Abdominal: Denies: diarrhea, nausea, vomiting Genitourinary: Reports: other - + moreland Neurologic: Denies: headache Skin: Denies: rash Hematologic: Denies: bleeding Musculoskeletal: Denies: pain Allergies: Coded Allergies: No Known Allergies (Unverified , 01/12/17) Objective Vital Signs Last 24 Hour Vital Signs Date Time Temp Pulse Resp B/P Pulse Ox O2 Delivery O2 Flow Rate FiO2 01/14/17 16:00 98.2 109 20 131/55 99 Room Air 01/14/17 14:47 98 20 100 T-piece 8.0 30 01/14/17 14:37 99 20 100 T-piece 8.0 30 01/14/17 14:37 30 01/14/17 12:07 T-piece 8.0 30 01/14/17 12:07 99 T-piece 8.0 30 01/14/17 12:00 98.1 108 17 110/83 99 T-piece 30 01/14/17 12:00 105 01/14/17 10:50 98 20 100 T-piece 8.0 30 01/14/17 10:45 30 01/14/17 10:45 99 20 100 T-piece 8.0 30 01/14/17 08:00 98.2 108 18 135/48 100 T-piece 30 01/14/17 08:00 110 01/14/17 06:33 98 T-piece 8.0 30 01/14/17 06:33 T-piece 8.0 30 01/14/17 06:25 100 20 100 T-piece 8.0 30 01/14/17 06:20 30 01/14/17 06:20 98 20 100 T-piece 8.0 30 01/14/17 04:00 103 01/14/17 04:00 97.0 95 21 96/40 99 Trach Collar 01/14/17 03:30 81 16 100 T-piece 8.0 30 01/14/17 03:23 30 01/14/17 03:22 90 16 100 T-piece 8.0 30 01/14/17 01:00 99 T-piece 8.0 30 01/14/17 01:00 T-piece 8.0 30 01/14/17 00:18 97.2 108 21 130/81 99 Trach Collar 01/14/17 00:00 106 01/13/17 23:44 82 16 100 T-piece 8.0 30 01/13/17 23:27 30 01/13/17 23:26 100 16 98 T-piece 8.0 30 01/13/17 22:51 98.2 01/13/17 21:26 78 144/59 100 Room Air 01/13/17 20:00 115 01/13/17 20:00 100.0 108 20 133/43 100 Room Air 01/13/17 19:30 101 18 100 T-piece 8.0 30 01/13/17 19:17 T-piece 8.0 30 01/13/17 19:17 99 T-piece 8.0 30 01/13/17 19:17 30 01/13/17 19:16 105 18 99 T-piece 8.0 30 Height (Feet): 5 Weight (Pounds): 129 General Appearance: no acute distress HEENT: normocephalic, atraumatic, anicteric, mucous membranes moist, PERRL, EOMI, pharynx normal, supple, no JVD Respiratory/Chest: crackles/rales, rhonchi - bilaterally Cardiovascular: normal rate, regular rhythm, no gallop/murmur, no JVD Abdomen: normal bowel sounds, soft, non tender, no organomegaly, non distended Genitourinary: other - + moreland Extremities: no cyanosis Skin: no rash, ulcers, other - wounds covered Neurologic/Psychiatric: [employer] II-XII grossly normal, alert - more alert Lymphatic: no neck adenopathy Musculoskeletal: no effusion Objective chest x-ray - c/w chf, ? infiltrates us - noted - + gs, + cirrhosis ct noted Microbiology Date/Time Source Procedure Growth Status 01/12/17 16:50 Blood Blood Culture - Preliminary NO GROWTH AFTER 24 HOURS Resulted 01/12/17 16:35 Blood Blood Culture - Preliminary NO GROWTH AFTER 24 HOURS Resulted 01/13/17 12:56 Sputum Gram Stain - Final Resulted 01/13/17 12:56 Sputum Culture - Preliminary Gram Negative Bacillus 1 Resulted 01/12/17 17:00 Nasal Nares MRSA Culture - Final NO METHICILLIN RESISTANT STAPH AUREUS... Complete 01/12/17 16:50 Nasal Nares Influenza Types A,B Antigen (KENYATTA) - Final Complete 01/13/17 01:00 Stool Clostridium difficile Toxin Assay - Final Complete 01/12/17 17:00 Urine,Clean Catch Urine Culture - Preliminary Resulted 01/13/17 01:00 Sacral Wound Gram Stain - Final Resulted 01/13/17 01:00 Sacral Wound Wound Culture Pending Resulted 01/12/17 17:00 Rectum VRE Culture - Final Enterococcus Faecium - Vre Complete Laboratory Tests Test 01/14/17 07:30 White Blood Count 5.7 K/UL (4.8-10.8) Red Blood Count 3.13 M/UL (4.20-5.40) L Hemoglobin 9.5 G/DL (12.0-16.0) L Hematocrit 30.8 % (37.0-47.0) L Mean Corpuscular Volume 98 FL (80-99) Mean Corpuscular Hemoglobin 30.4 PG (27.0-31.0) Mean Corpuscular Hemoglobin Concent 30.8 G/DL (32.0-36.0) L Red Cell Distribution Width 20.6 % (11.6-14.8) H Platelet Count 83 K/UL (150-450) L Mean Platelet Volume 7.7 FL (6.5-10.1) Neutrophils (%) (Auto) % (45.0-75.0) Lymphocytes (%) (Auto) % (20.0-45.0) Monocytes (%) (Auto) % (1.0-10.0) Eosinophils (%) (Auto) % (0.0-3.0) Basophils (%) (Auto) % (0.0-2.0) Differential Total Cells Counted 100 Neutrophils % (Manual) 74 % (45-75) Lymphocytes % (Manual) 18 % (20-45) L Monocytes % (Manual) 3 % (1-10) Eosinophils % (Manual) 5 % (0-3) H Basophils % (Manual) 0 % (0-2) Band Neutrophils 0 % (0-8) Platelet Estimate Decreased L Platelet Morphology Normal Hypochromasia 2+ Anisocytosis 3+ Sodium Level 140 mEQ/L (135-145) Potassium Level 3.6 mEQ/L (3.4-4.9) Chloride Level 102 mEQ/L (98-107) Carbon Dioxide Level 21 mEQ/L (20-30) Anion Gap 17 (5-15) H Blood Urea Nitrogen 23 mg/dL (7-23) Creatinine 0.7 mg/dL (0.5-0.9) Estimat Glomerular Filtration Rate > 60 mL/min (>60) Glucose Level 356 mg/dL (74-106) H Calcium Level 8.9 mg/dL (8.6-10.2) Total Bilirubin 1.7 mg/dL (0.0-1.2) H Direct Bilirubin 0.8 mg/dL (0.1-0.3) H Aspartate Amino Transf (AST/SGOT) 74 U/L (5-40) H Alanine Aminotransferase (ALT/SGPT) 44 U/L (3-33) H Alkaline Phosphatase 309 U/L (35-104) H Total Protein 6.1 g/dL (6.6-8.7) L Albumin 2.6 g/dL (3.5-5.2) L Globulin 3.5 g/dL Albumin/Globulin Ratio 0.7 (1.0-2.7) L Current Medications Medications (Trade) Dose Ordered Sig/Pete Route PRN Reason Start Time Stop Time Status Last Admin Dose Admin Acetaminophen (Tylenol) 650 mg Q4H PRN GT Prn Headache/Temp > 101 01/12/17 22:30 02/11/17 22:29 01/13/17 21:03 Albuterol/ Ipratropium (DuoNeb 0.5-3(2.5)mg/3ml) 3 ml Q4HRT HHN 01/12/17 23:00 01/17/17 22:59 01/14/17 14:37 Dextrose (Dextrose 50%) STAT PRN IV Hypoglycemia 01/12/17 22:45 02/11/17 22:44 Dextrose/ Electrolytes (D5W w/KCl 20mEq) 1,000 ml @ 50 mls/hr Q20H IV 01/14/17 18:00 02/13/17 17:59 Diphenoxylate HCl/ Atropine (Lomotil) 2.5 mg Q6H PRN GT Diarrhea 01/13/17 07:45 02/12/17 07:44 Insulin Aspart Protocol continued 380-42... Q6HR SUBQ 01/13/17 00:06 02/12/17 00:05 01/14/17 12:01 Insulin Detemir (Levemir) 40 units BEDTIME SUBQ 01/12/17 23:00 02/11/17 22:59 01/13/17 21:05 Lacosamide 200 mg 200 mg Q12HR ORAL 01/13/17 09:00 02/12/17 08:59 01/14/17 08:52 Levetiracetam (Keppra) 1,500 mg BID GT 01/13/17 09:00 02/12/17 08:59 01/14/17 08:52 Multivitamins (Multivitamin Hexavitamin) 5 ml DAILY GT 01/13/17 09:00 02/12/17 08:59 01/14/17 08:51 Pantoprazole (Protonix) 40 mg DAILY GT 01/13/17 09:00 02/12/17 08:59 01/14/17 08:51 Piperacillin Sod/ Tazobactam Sod/ Dextrose (Zosyn/D5W) 110 ml @ 27.5 mls/hr Q8H IVPB 01/13/17 00:00 01/20/17 00:00 01/14/17 17:17 Sitagliptin Phosphate (Januvia) 100 mg DAILY GT 01/13/17 09:00 02/12/17 08:59 01/14/17 08:51 Vancomycin HCl 1 ea 1 ea DAILY PRN MISC Per rx protocol 01/12/17 22:15 02/11/17 22:14 Vancomycin HCl/ Dextrose (Vancomycin/D5W) 275 ml @ 183.708 mls/hr Q24H IVPB 01/12/17 23:00 01/17/17 22:59 01/13/17 23:48 LATOSHA ARANDA Jan 14, 2017 17:43
[2017-01-14 20:00] VITALS: BP 120/97
[2017-01-14] MEDS: Levemir Flexpen SUBQ SCH (21:46)
[2017-01-14] MEDS: Vancomycin 750mg/D5W 275ml IVPB SCH ×2 (22:46)
[2017-01-15] VITALS: BP 127/67
[2017-01-15] MEDS: NovoLOG Insulin Flexpen SUBQ SCH ×4 (00:30→18:20)
[2017-01-15] MEDS: Piperacillin/Tazobactam 3.375 GM in D5W 110 ML IVPB SCH ×3 (00:30→16:26)
[2017-01-15] MEDS: DuoNeb 0.5-3(2.5)mg/3ml neb HHN SCH ×5 (03:00→19:25)
[2017-01-15 04:00] VITALS: BP 116/47
[2017-01-15 07:23] LABS: BASOPHILS % (AUTO) 1.2 % (0.0-2.0); EOSINOPHILS % (AUTO) 2.4 % (0.0-3.0); LYMPHOCYTES % (AUTO) 11.7 % (20.0-45.0); MEAN CORPUSCULAR HEMOGLOBIN 30.1 PG (27.0-31.0); MEAN CORPUSCULAR HGB CONC 32.1 G/DL (32.0-36.0); MEAN CORPUSCULAR VOLUME 94 FL (80-99); MEAN PLATELET VOLUME 10.9 FL (6.5-10.1); MONOCYTES % (AUTO) 5.8 % (1.0-10.0); PLATELET COUNT 106 K/UL (150-450); RED BLOOD COUNT 3.48 M/UL (4.20-5.40); RED CELL DISTRIBUTION WIDTH 20.7 % (11.6-14.8); WHITE BLOOD COUNT 7.7 K/UL (4.8-10.8)
[2017-01-15 08:00] VITALS: BP 136/60
[2017-01-15 08:03] LABS: ALANINE AMINOTRANSFERASE 54 U/L (3-33); ALBUMIN/GLOBULIN RATIO 0.7 (1.0-2.7); ANION GAP 16 (5-15); ASPARTATE AMINO TRANSFERASE 104 U/L (5-40); CALCIUM 8.8 mg/dL (8.6-10.2); CARBON DIOXIDE 22 mEQ/L (20-30); CHLORIDE 99 mEQ/L (98-107); CREATININE 0.6 mg/dL (0.5-0.9); GLOMERULAR FILTRATION RATE > 60 mL/min (>60); HEMOLYSIS 50; POTASSIUM 4.4 mEQ/L (3.4-4.9); SODIUM 137 mEQ/L (135-145)
[2017-01-15] MEDS: Multivitamin 5ml Liquid GT SCH (08:28)
[2017-01-15] MEDS: Pantoprazole 40mg pkt GT SCH (08:28)
[2017-01-15] MEDS: Lacosamide 100 MG TABLET ORAL SCH (08:28)
--- NOTE | 2017-01-15 11:03 | Diagnostic Imaging Report ---
APPROVED REPORT CPT Code: 89362 Present Symptoms Upper Extremity Edema: Left BILATERAL UPPER EXTREMITY: Imaging reveals patency of the internal jugular, subclavian, axillary and brachial veins. The cephalic and basilic veins are also patent. Doppler indicates normal spontaneous flow within these venous segments, bilaterally.
[2017-01-15 12:00] VITALS: BP 142/62
--- NOTE | 2017-01-15 12:09 | Diagnostic Imaging Report ---
Indication: Shortness of breath Technique: One view of the chest Comparison: 01/13/2017 Findings: Bilateral interstitial edema versus infiltrates, left-sided pleural effusion again demonstrated. Appearance is overall unchanged. Heart size is upper limits of normal. Tracheostomy is again demonstrated Impression: Unchanged, over 2 days, findings as above.
[2017-01-15] MEDS: D5W w/KCl 20mEq 1,000 ML IV SCH (13:54)
[2017-01-15] MEDS ORDERED: CALCIUM POLYCA625 MG GT (14:15)
[2017-01-15] MEDS ORDERED: TYLENOL650 MG/20. GT (14:15)
[2017-01-15] MEDS ORDERED: TIGECYCLINE50 MG IV (14:15)
[2017-01-15] MEDS ORDERED: MULTI-DELYN237 ML GT (14:15)
[2017-01-15] MEDS ORDERED: LANTUS SOL100 UNIT/1 SUBQ (14:15)
[2017-01-15] MEDS ORDERED: JANUVIA100 MG GT (14:15)
[2017-01-15] MEDS ORDERED: ARGINAID POWDE1 EACH GT (14:15)
[2017-01-15] MEDS ORDERED: NEXIUM40 MG ORAL (14:15)
[2017-01-15] MEDS ORDERED: KEPPRA1000 MG GT (14:15)
[2017-01-15] MEDS ORDERED: VIMPAT200 MG GT (14:15)
[2017-01-15] MEDS ORDERED: HUMALOG100 UNIT/1 SUBQ (14:15)
--- NOTE | 2017-01-15 14:24 | Discharge Summary ---
Discharge Summary Hospital Course Date of Admission Jan 12, 2017 at 18:26 Date of Discharge 01/15/17 Admitting Diagnosis sepsis HPI Flora Ring is a 66 year old female who was admitted on Jan 12, 2017 at 18:26 for Sepsis Consultations ID Procedures no Hospital Course 1. Sepsis with fever and lactic acidosis, hemorrhagic tracheobronchitis due to GNR, acinetobacter 2. Respiratory failure on cool aerosol with tracheostomy. 3. Anoxic encephalopathy status post status epilepticus. 4. Seizure disorder. 5. Dysphagia with gastric tube. 6. Cirrhosis. 7. Diabetes. 8. Hypernatremia with dehydration. 9. Urinary tract infection, mild. 10. Pulm HTN Improved w abx c/s noted BS and fever improved dc to snf Discharge Medications New Medications: Tigecycline (Tigecycline) 50 Mg Vial 50 MG IV Q12H for 7 Days, #14 VIAL Changed Medications: Arginine/Ascorbate Sod/Milton AC (Arginaid Powder) 1 Each Powd.pack 1 EACH GT QD, #1 PACKET (Medication details modified) Insulin Glargine (Lantus) 100 Unit/1 Ml Insuln.pen 40 UNIT SUBQ BEDTIME, #1 EA 0 Refills (Changed from: 40 ) Insulin Lispro (Humalog) 100 Unit/1 Ml Vial 0 SUBQ QID, #1 UNITS 0 Refills (Medication details modified) Continued Medications: Acetaminophen (Acetaminophen) 650 Mg/20.3 Ml Solution 650 MG GT Q4HR PRN for Prn Headache/Temp > 101, #1 ML 0 Refills (This prescription has been renewed) Calcium Polycarbophil (Calcium Polycarbophil) 625 Mg Tablet 625 MG GT EVERY 6 HOURS, #1 TAB (This prescription has been renewed) Esomeprazole Magnesium (Nexium) 40 Mg Capsule.dr 40 MG ORAL DAILY, #1 CAP (This prescription has been renewed) Lacosamide (Vimpat) 200 Mg Tablet 200 MG GT BID, #1 TAB (This prescription has been renewed) Levetiracetam (Keppra) 1,000 Mg Tablet 1500 MG GT BID, #30 TAB 0 Refills (This prescription has been renewed) Multivitamin Liquid* (Multi-Delyn*) 237 Ml Liquid 5 ML GT DAILY, #1 ML (This prescription has been renewed) Sitagliptin (Januvia) 100 Mg Tablet 100 MG GT DAILY, #1 TAB (This prescription has been renewed) Discontinued Medications: Diphenoxylate Hcl/Atropine (Diphenoxylate-Atropine Liq) 60 Ml Liquid 5 ML GT EVERY 6 HOURS PRN for Diarrhea, #60 ML 0 Refills Discharge Condition Upon Discharge: improving Discharge Disposition Patient was discharged to SNF/Subacute Facility(03) Discharge Diagnoses: (1) Acute infective tracheobronchitis (2) Pulmonary arterial hypertension (3) Sepsis (4) Respiratory failure (5) Anoxic encephalopathy (6) Arm swelling (7) Fever (8) Cirrhosis (9) Diabetes type 2, uncontrolled (10) UTI (urinary tract infection) (11) Dehydration (12) Seizure disorder VIOLET BLOOD Jan 15, 2017 14:24
[2017-01-15] MEDS ORDERED: POLYMYXIN B IV SCH ×2 (15:30)
[2017-01-15] MEDS ORDERED: [UNRECOGNIZED DRUG - OTHER] IV SCH ×2 (15:30)
[2017-01-15] MEDS ORDERED: Tigecycline 100 MG in D5W 110 ML IVPB ONE (16:00)
[2017-01-15] MEDS ORDERED: D5W 275ml ONE (20:29)
[2017-01-15] MEDS ORDERED: Tubing IV Secondary IV ONE (20:29)
[2017-01-15] MEDS ORDERED: Sterile Water Irrig 1000ml IRRIG ONE (20:29)
[2017-01-15] MEDS ORDERED: NS 275ml ONE (20:29)
[2017-01-15] MEDS ORDERED: Sterile Water For Irrig 2000ml IRRIG ONE (20:29)
[2017-01-16] MEDS ORDERED: [UNRECOGNIZED DRUG - OTHER] IVPB SCH ×2 (06:00)
== END 2017-01-15 20:30 | DRG 871 ==
LOC: EDBD 16:33 → EMR 18:20 → 2E 18:26 → EDBEDREQ 20:12 → 2E 20:50
DX: A41.9 Sepsis, unspecified organism (principal); J96.90 Respiratory failure, unspecified, unspecified whether with hypoxia or hypercapnia; G93.1 Anoxic brain damage, not elsewhere classified; E87.0 Hyperosmolality and hypernatremia; Z93.0 Tracheostomy status; N39.0 Urinary tract infection, site not specified; E87.2 Acidosis; I10 Essential (primary) hypertension; E11.9 Type 2 diabetes mellitus without complications; K74.60 Unspecified cirrhosis of liver; G40.901 Epilepsy, unspecified, not intractable, with status epilepticus; E86.0 Dehydration; I27.2 Other secondary pulmonary hypertension; R13.10 Dysphagia, unspecified; G40.909 Epilepsy, unspecified, not intractable, without status epilepticus; D64.9 Anemia, unspecified; I50.9 Heart failure, unspecified; Z79.4 Long term (current) use of insulin; Z79.899 Other long term (current) drug therapy
CPT/HCPCS: 36415; 71010; 74177; 76700; 80053; 80299; 81003; 82140; 82248; 82550; 82553; 82962; 83605; 83690; 83735; 83880; 84100; 84484; 85007; 85025; 85610; 85730; 86710; 87040; 87070; 87081; 87086; 87181; 87205; 87493; 93005; 93306; 93970; 94640; 94760; J1815; J7620; S5561